=== PATIENT | female | born 1950 | race Caucasian/White ===

== ENCOUNTER → 2019-03-02 | Day surgery (SDC) | payer MEDICARE, MEDICAID ==
[~2019-03-02] MED LIST: ALEVE220 MG PO; COREG25 MG PO; LISINOPRIL40 MG PO; OMEPRAZOLE40 MG PO; RED YEAST RICE600 MG PO; SYNTHROID25 MC1 PO
--- NOTE | ~2019-03-02 | OP ---
[address] [address] OPERATIVE REPORT Name: CÉSARITA CARLOS EDUARDO Room: [facility]#: [id number] Admission: 03/02/19 Attend Phys: Theodore Nino, Discharge: Date of : 50 Report #: [id number] THIS REPORT FOR: //name// CC: Theodore ANN Physician staff DICTATED BY: Pablo Cabrera DO DATE OF SERVICE: 03/02/2019 PREOPERATIVE DIAGNOSIS: Right shoulder rotator cuff tear. POSTOPERATIVE DIAGNOSES: Right shoulder bursitis and impingement. SURGEON: Theodore Nino DO SPOOL WORKER: Pablo Cabrera DO PROCEDURE PERFORMED: Right shoulder arthroscopic surgery with subacromial decompression. ANESTHESIA: General and interscalene nerve block by anesthesia. ESTIMATED BLOOD LOSS: 200 mL. SPECIMEN REMOVED: None. COMPLICATIONS: None. ANTIBIOTICS: 2 grams Ancef IV piggyback preop. INDICATIONS FOR PROCEDURE: The patient is a pleasant 68-year-old female dealing with some right shoulder pain for quite some time. She attempted conservative treatment and has failed. She even had an injection in the past that did not relieve her pain. She is becoming more sedentary and these symptoms were affecting her ADLs. She underwent an MRI at an outside facility, which demonstrated a full-thickness rotator cuff tear. We discussed with her surgical and nonsurgical intervention. She voiced understanding and wished to proceed with surgery. DESCRIPTION OF PROCEDURE: The patient was seen in the preop holding area. Correct operative site was marked. Verbal informed consent was obtained. She was transferred to the operative suite and placed supine on the table and given the benefit of general anesthesia by the anesthesia team. She was then properly secured to the table and placed in the beach chair position [place] [address] OPERATIVE REPORT Name: ITA LINDSEY Room: [facility]#: [id number] Admission: 03/02/19 Attend Phys: Theodore Nino, Discharge: Date of : 50 Report #: [id number] extremity exposed. Right upper extremity was then prepped and draped in normal sterile fashion. Timeout was performed. All of the other attendants were in agreement with the correct operative site and procedure to be performed. A 11-blade scalpel was used to perform our portal incision posteriorly. Camera trocar was inserted into the joint. Diagnostic exam was performed with findings consistent with an intact rotator cuff. No evidence of a full-thickness tear. No significant synovitis was appreciated. Biceps tendon was intact. It was secured to the anchor position on the superior glenoid. No significant labral tear was appreciated. There were no loose bodies appreciated. 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 Otherwise, no significant pathology was appreciated. We then turned our attention to the subacromial space. There was significant thickened and fibrotic bursal tissue in this area. An 11-blade scalpel was used to make our lateral incision. Blunt trocar was inserted and then the arthroscopic shaver was used in combination with the radiofrequency ablator to perform a subacromial decompression. Once we visualized the acromial bursal side of the rotator cuff, there was once again no evidence of significant pathology. There was no focal tearing or significant partial tearing appreciated. Shoulder was taken through range of motion while we visualized arthroscopically and no significant pathology was appreciated during this maneuver either. The arthroscopic shaver was used to remove any remaining soft tissue and bursal tissue and the radiofrequency ablator was also utilized in this manner. The shoulder was then injected with 40 mg of Kenalog and 4 mL of Naropin and the instruments were removed and the portal incisions were closed using 3-0 nylon in simple interrupted fashion. Incisions were covered with Xeroform, 4 x 4s, ABD, and tape and she was placed in a simple sling and transferred to the PACU in stable condition. POSTOPERATIVE PLAN: The patient will be monitored in PACU until awake and stable and discharged home. She will follow up with us in 2 weeks should any problems or questions arise. She was provided a prescription for p.o. analgesia and she can have active and passive range of motion of the right upper extremity. We will reevaluate her possibly with physical therapy and a followup visit. Recommend she take aspirin 325 daily for DVT prophylaxis. By: [id number] Nino DO /miranda
[2019-03-02 08:47] LABS: HEMATOCRIT 38.3 % (37.0-47.0); HEMOGLOBIN 13.4 gm/dL (12.0-15.0); MCH 32.1 pg (26.0-34.0); MCV 91.7 fL (80.0-100.0); MPV 8.1 fl. (7.2-11.1); RBC 4.18 mil/uL (4.20-5.00); RDW-CV 12.9 % (10.5-14.5); WBC 4.6 thou/uL (4.0-11.0)
[2019-03-02 08:56] LABS: CALCIUM 9.3 mg/dL (8.5-10.1); CREATININE 0.8 mg/dL (0.6-1.3)
[2019-03-02 08:57] LABS: ALBUMIN 3.7 g/dL (3.4-5.0); TOTAL BILIRUBIN 0.6 mg/dL (<0.1-1.0); TOTAL PROTEIN 7.4 g/dL (6.4-8.2)
--- NOTE | 2019-03-02 16:36 | EKG ---
[place] [address] ELECTROCARDIOGRAM REPORT Name: CÉSARITA Room: [facility]#: [id number] Admission: 03/02/19 Attend Phys: Theodore Nino, Discharge: Date of : 50 Report #: [id number] THIS REPORT FOR: //name// [facility] Test Date: 2019-03-02 Test Time: 08:44:16 Pat Name: ITA LINDSEY Department: Room: Gender: F [employer] Manager: LACEY : 1950 Requested By: Theodore Nino Order Number: [id number] Virgie MD: Louie Pantoja Measurements Intervals [place] Rate: 69 P: 47 VA: 202 QRS: 24 QRSD: 79 T: 28 QT: 398 QTc: 427 Interpretive Statements Sinus rhythm No previous ECG available for comparison Electronically Signed On 03-02-2019 16:36:45 CDT by Louie Pantoja [email or web address] <ELECTRONICALLY SIGNED> By: Louie Pantoja MD, [facility] 03/02/19 1636 0844 [id number] Louie Pantoja MD, FACC /EPI
== END | disposition home or self-care (01) ==
LOC: M.SUR 08:13
PROVIDERS: Orthopaedic Surgery
DX: M75.41 Impingement syndrome of right shoulder (principal); M75.51 Bursitis of right shoulder; Z79.899 Other long term (current) drug therapy; Z88.2 Allergy status to sulfonamides; Z88.6 Allergy status to analgesic agent; Z88.8 Allergy status to other drugs, medicaments and biological substances